=== PATIENT | female | born 1965 | race Caucasian/White ===

== ENCOUNTER → 2024-06-19 07:26 | Outpatient (REF) | payer OTHER, SELFPAY | LOC: DHCBC/DCA 07:26 | PROVIDERS: ATTENDING PHYSICIAN Internal Medicine Cardiovascular Disease; FAMILY PHYSICIAN Family Medicine | DX: I25.110 Atherosclerotic heart disease of native coronary artery with unstable angina pectoris (principal) | CPT/HCPCS: 78452; 93017; A9500; J2785 ==

== ENCOUNTER 2024-07-14 10:06 | Emergency (ER) | payer OTHER, SELFPAY ==
[2024-07-14 10:11] VITALS: BP 153/88
--- NOTE | 2024-07-14 11:04 | ED.MUSCINJ ---
HPI-Injury
General
Chief Complaint: Fall
Source: patient
Time Seen by Provider: 07/14/24 10:54
History of Present Illness-Injury
Initial Injury comments:
59yoF with a history of coronary artery disease, prior CVA, hypertension, and hyperlipidemia presenting with her for evaluation of a left ankle injury. Patient tripped and inverted her left ankle about 4 hours ago. She developed
significant pain and ecchymosis after the injury. She has been unable to bear weight. No paresthesias. No prior injuries to the left ankle. She denies any other injuries or complaints.
Past History
Past History
ED Past Medical History: CAD, CVA, HTN and Hypercholesterolemia; Negative IDDM or NIDDM
ED Past Surgical History: Cardiac (stenting), Gynecological (Hysterectomy) and Tonsilectomy
Social History
Tobacco: Former smoker
Alcohol: None
Drug: None
Personal:
Living: with family
Employment: Employed
Family History
Family History: Hypertension and Other (TIA in sibling)
Phy Exam
General Physical Exam
General Presentation: no apparent distress
General age: appears stated age
General Skin: warm and dry
General Habitus: normal
General Mental: alert
Musculoskeletal Exam
Musculoskeletal Exam: other (L ankle: No deformity. Large amount of soft tissue swelling and ecchymosis noted to lateral ankle with tenderness. Pain elicited with dorsiflexion. No tenderness in foot or proximal fibula. 2+ DP pulse and sensation
intact. )
Skin Exam
Skin Exam: warm/dry
Psychiatric Exam
Psychiatric Exam: normal mood/affect
Injury Course
Orders/Labs/Results
Orders:
Orders
07/14/24 10:13
Ankle, left 3 view CR [CR Ankle - Left Min 3 Views ] Urgent
Comment: + swelling
Reason For Exam: tripped and twisted ankle this morning
07/14/24 11:27
Skip Wrap Left-Treatment ONCE
boot [Ortho Boot Left- Treatment] ONCE
Short or tall?: Tall
07/14/24 11:29
Oxycodone/Acetaminophen [Percocet 5/325] 1 tablet PO NOW STA
MDM/Problems Addressed
Differential Diagnosis Includes:
59yoF here with L ankle pain after an inversion injury 4 hours [employer]. Large amount of swelling on exam without deformity. LLE is neurovascularly intact. Differential diagnosis includes fracture vs. sprain
X-rays obtained which reveal '1.5 cm crescent-shaped ACUTE COMMINUTED CORTICAL AVULSION FRACTURE of the DORSOLATERAL CALCANEUS at the extensor digitorum brevis attachment.' Case discussed with orthopedics (Dr. Hinojosa). Ortho recommending skip wrap
to help with swelling and walking boot. Recommendations discussed with patient. Advised close outpatient f/u with orthopedics. She was discharged in stable condition.
*Critical Care Note
Total Time (30-74mins, 75-104mins- exclusive of procedures): Not Applicable
ED Attending Note
-
Portions of this chart may have been created with voice recognition software.� Occasional wrong word or��sound alike� substitutions may have occurred due to the inherent limitations of voice recognition software.
Discharge Plan
Departure
Patient Disposition: Home (Routine Discharge)
Date of Disposition: 07/14/24
Time of Disposition: 11:28
Patient with high blood pressure during this ER visit?: Yes
Discharge Problem:
Avulsion fracture of left calcaneus
Instructions: Heel Fracture (DC)
Prescriptions:
No Action
clopidogrel 75 MG tablet
75 mg PO DAILY Qty: 30 11RF
atorvastatin 40 MG tablet
80 mg PO HS
sertraline 100 MG tablet
100 mg PO DAILY
aspirin 81 MG tablet,delayed release (DR/EC)
81 mg PO DAILY
losartan 50 MG tablet
100 mg PO DAILY
metoprolol succinate 25 MG tablet extended release 24 hr
25 mg PO DAILY
ezetimibe 10 MG tablet
10 mg PO HS
calcium carbonate-vitamin D3 1 EACH capsule
1 cap PO DAILY
multivitamin with folic acid [Tab-A-Brian] 1 TABLET tablet
1 tab PO DAILY
diltiazem HCl 120 MG capsule,extended release 24hr
120 mg PO DAILY
evolocumab [Repatha Syringe] 140 MG/ML syringe
140 mg SC Q2W
isosorbide mononitrate 30 MG tablet extended release 24 hr
30 mg PO DAILY
levofloxacin 500 mg tablet
500 mg PO DAILY 6 Days Qty: 6 0RF
metronidazole 500 mg tablet
500 mg PO TID Qty: 20 0RF
Referrals:
Lowell Mg MD [Family Provider] -
Baltazar Hinojosa MD [Active] -
Activity Restrictions/Additional Instructions:
Rest, compress, ice, and elevate your ankle. Use walking boot for immobilization.
Please call today to schedule a follow-up with orthopedics.
Interventions
Interventions:
*Risk Screen - Suicide Last Done: 07/14/24 10:11
*General Assessment Last Done: 07/14/24 11:15
*Neglect/Abuse Screening Last Done: 07/14/24 10:11
ED- Fall Risk Assessment Last Done: 07/14/24 11:15
*ED COVID-19 Vaccine History Last Done: 07/14/24 11:15
*Nursing Disposition Last Done: 07/14/24 11:53
ED-Musculoskeletal Assessment Last Done: 07/14/24 11:15
ED- Neurological Assessment Last Done: 07/14/24 11:15
ED-Skin Assessment Last Done: 07/14/24 11:15
Discharge Date and Time
Discharge Date/Time: 07/14/24 11:53
Print Language: SUDANESE
[2024-07-14] MEDS: PERCOCET 5/325 1 TABLET PO (11:39)
== END 2024-07-14 11:53 | disposition home or self-care (01) ==
LOC: EMR 10:06
PROVIDERS: EMERGENCY PHYSICIAN Emergency Medicine; FAMILY PHYSICIAN Family Medicine
DX: S92.002A Unspecified fracture of left calcaneus, initial encounter for closed fracture (principal); S99.912A Unspecified injury of left ankle, initial encounter; X50.1XXA Overexertion from prolonged static or awkward postures, initial encounter; I25.10 Atherosclerotic heart disease of native coronary artery without angina pectoris; I10 Essential (primary) hypertension; E78.00 Pure hypercholesterolemia, unspecified; Z82.49 Family history of ischemic heart disease and other diseases of the circulatory system; Z86.73 Personal history of transient ischemic attack (TIA), and cerebral infarction without residual deficits; Z87.891 Personal history of nicotine dependence; Z90.710 Acquired absence of both cervix and uterus; Z95.5 Presence of coronary angioplasty implant and graft
CPT/HCPCS: 99283; 73610

== ENCOUNTER → 2025-04-27 12:08 | Outpatient (REF) | payer OTHER, SELFPAY ==
[2025-04-27 14:41] LABS: Iron 95 ug/dl (37-170)
[2025-04-27 14:49] LABS: Hematocrit 39.6 % (37.0-47.0); Hemoglobin 14.0 g/dL (12.0-16.0); Mean Corp Hgb Conc. 35.4 g/dL (33.0-37.0); Mean Corpuscular Volume 90.2 fL (81.0-99.0); Nucleated Red Blood Cells % 0 %; Platelet Count 149 10^3/uL (130-400); Red Cell Dist. Width 12.7 % (11.5-14.5)
[2025-04-27 14:50] LABS: Total Iron Binding Capacity 240 ug/dl (265-497)
[2025-04-27 15:14] LABS: Ferritin 40.4 ng/ml (11.1-264.0)
== END ==
LOC: REG 12:08
PROVIDERS: ATTENDING PHYSICIAN Family Medicine
DX: R53.83 Other fatigue (principal)
CPT/HCPCS: 36415; 82728; 83540; 83550; 85025

== ENCOUNTER → 2025-05-19 13:56 | Outpatient (REF) | payer OTHER, SELFPAY | LOC: WDC 13:56 | PROVIDERS: ATTENDING PHYSICIAN Family Medicine | DX: Z12.31 Encounter for screening mammogram for malignant neoplasm of breast (principal) | CPT/HCPCS: 77063; 77067 ==